=== PATIENT | female | born 1945 | race Caucasian/White ===

== ENCOUNTER 2018-04-08 09:47 | Observation (INO) ==
[2018-04-08 11:18] LABS: Baso # (Auto) 0.1 th/mm3 (0.0-0.2); Baso % (Auto) 0.6 % (0.0-2.0); Eos # (Auto) 0.2 th/mm3 (0.0-0.4); Hematocrit 41.5 % (35.0-46.0); Hemoglobin 13.8 gm/dL (11.6-15.3); Lymph # (Auto) 2.1 th/mm3 (1.0-4.8); Lymph % (Auto) 17.5 % (9.0-44.0); Mean Corpuscular HGB Conc 33.3 % (32.0-36.0); Mean Corpuscular Hemoglobin 28.3 pg (27.0-34.0); Mean Platelet Volume 8.8 fL (7.0-11.0); Mono # (Auto) 0.7 th/mm3 (0.0-0.9); Mono % (Auto) 5.5 % (0.0-8.0); Neut # (Auto) 8.9 th/mm3 (1.8-7.7); Neut % (Auto) 74.4 % (16.0-70.0); Platelet Count 235 th/mm3 (150-450); Red Blood Count 4.89 mil/mm3 (4.00-5.30); Red Cell Distribution Width 13.8 % (11.6-17.2)
[2018-04-08] MEDS ORDERED: Pantoprazole Inj 80 MG in Sodium Chlor 0.9% Inj 35 ML IV.SIG ONE (11:20)
--- NOTE | 2018-04-08 11:20 | ED ---
HPI General Chief complaint: GI Bleed Stated complaint: Rectal bleeding x 1 day Time Seen by Provider: 04/08/18 10:54 Source: patient and family Mode of arrival: ambulatory Limitations: no limitations History of Present Illness HPI narrative: 72 y/o female states she has been having bright red rectal bleeding over the past couple of days. Her family helps supplement history as she states she cannot remember a lot after her stroke. They state that she had a colonoscopy routinely a year ago that was okay. They state that she recently got switched from Coumadin to Eliquis this week were advised to watch out for bleeding. When they called the doctor they advised him to come here. Quality is bright red. Severity is rectal. Patient denies any other concurrent complaints. Onset (ago): day(s) Radiation: non-radiation Exacerbating factors: none Associated symptoms: Reports denies other symptoms Related Data Allergies Allergy/AdvReac Type Severity Reaction Status Date / Time carboplatin Allergy Severe Anaphylaxis Verified 04/08/18 12:01 Review of Systems ROS: all other systems reviewed are negative [facility] Medical History Medical History Diabetes (Acute) History of CVA (cerebrovascular accident) (Acute) Hx of hysterectomy (Acute) Hypercholesteremia (Acute) Hypertension (Acute) Surgical History Surgical History Hx of carpal tunnel repair (Acute) Hx of right mastectomy (Acute) Hx of total hip arthroplasty (Acute) Social History Social History Substance History: No History of Abuse Smoking Status: Former smoker How Often Do You Have a Drink Containing Alcohol: Never Recent Travel in [facility] within the Last 8 Weeks: No Recent Out of Country Travel within the Last 8 Weeks: No Exam Narrative Exam Narrative: GENERAL: 72 y/o female in no apparent distress, pale SKIN: Focused skin assessment warm/dry. HEAD: Atraumatic. Normocephalic. EYES: Pupils equal and round. No scleral icterus. No injection or drainage. ENT: No nasal bleeding or discharge. Mucous membranes pink and moist. NECK: Trachea midline. No JVD. CARDIOVASCULAR: Regular rate and rhythm. RESPIRATORY: No accessory muscle use. Clear to auscultation. Breath sounds equal bilaterally. GASTROINTESTINAL: Abdomen soft, non-tender, nondistended. MUSCULOSKELETAL: No obvious deformities. No clubbing. No cyanosis. NEUROLOGICAL: Awake and alert. moves all extremities. Normal speech. RECTAL EXAM: Performed with lead pressman and after permission. No external hemorrhoid or fissure, stool is brown, with blood PSYCHIATRIC: Appropriate mood and affect; insight and judgment normal. Procedures Hemaprompt Stool Procedural Steps Taken: specimen placed in appropriate test area, developer placed on specimen and control areas and controls appropriately positive and negative Hemaprompt Stool Result: positive Course Reevaluation(s) Reevaluation #1: Lab work stable. Will discuss with GI Reevaluation #2: Patient agrees to observation, given active bleeding and on Eliquis Consultations Consultation #1: dr hughes agrees to observation and will follow Consultation #2: dr farooq agrees to admit Initial Documented Vital Signs Temperature 98.6 F 04/08/18 10:03 Pulse Rate 103 H 04/08/18 10:03 Respiratory Rate 18 04/08/18 10:03 Blood Pressure 168/76 H 04/08/18 10:03 Pulse Oximetry 96 04/08/18 10:03 Last Documented Vital Signs Temperature 98.6 F 04/08/18 10:03 Pulse Rate 68 04/08/18 12:23 Respiratory Rate 20 04/08/18 12:23 Blood Pressure 115/67 04/08/18 12:23 Pulse Oximetry 100 04/08/18 12:23 Medical Decision Making MDM Narrative Medical decision making narrative: We will check blood work and place on Protonix and reevaluate Medical Screen Exam Complete: Yes Emergency Medical Condition: Yes Differential Diagnosis Differential Diagnosis: Hemorrhoid, anemia, diverticulosis Lab Data Lab results reviewed: Yes I reviewed the patient's lab results. Result diagrams: 04/08/18 11:09 04/08/18 11:09 Lab Results 04/08/18 04/08/18 04/08/18 Range/Units 11:09 11:09 11:09 CBC w Diff Auto diff final WBC 12.0 H (4.0-11.0) th/mm3 RBC 4.89 (4.00-5.30) mil/mm3 Hgb 13.8 (11.6-15.3) gm/dL Hct 41.5 (35.0-46.0) % MCV 85.0 (80.0-100.0) fL MCH 28.3 (27.0-34.0) pg MCHC 33.3 (32.0-36.0) % RDW 13.8 (11.6-17.2) % Plt Count 235 (150-450) th/mm3 MPV 8.8 (7.0-11.0) fL Neut % (Auto) 74.4 H (16.0-70.0) % Lymph % (Auto) 17.5 (9.0-44.0) % Wheeler % (Auto) 5.5 (0.0-8.0) % Eos % (Auto) 2.0 (0.0-4.0) % Baso % (Auto) 0.6 (0.0-2.0) % Neut # (Auto) 8.9 H (1.8-7.7) th/mm3 Lymph # (Auto) 2.1 (1.0-4.8) th/mm3 Wheeler # (Auto) 0.7 (0.0-0.9) th/mm3 Eos # (Auto) 0.2 (0.0-0.4) th/mm3 Baso # (Auto) 0.1 (0.0-0.2) th/mm3 WBC Differential . Differential Comment . PT 12.3 H (9.8-11.6) sec INR 1.2 Ratio APTT 26.1 (23.4-31.7) sec Sodium 138 (136-145) meq/L Potassium 3.1 L (3.5-5.1) meq/L Chloride 100 (98-107) meq/L Carbon Dioxide 30.8 (21.0-32.0) meq/L Anion Gap 7 (5-15) meq/L BUN 19 H (7-18) mg/dL Creatinine 1.10 H (0.50-1.00) mg/dL Estimated GFR 49 L (>89) mL/min Random Glucose 204 H (74-106) mg/dL Calcium 8.6 (8.5-10.1) mg/dL Magnesium 1.6 (1.5-2.5) mg/dL Total Bilirubin 0.3 (0.2-1.0) mg/dL AST 27 (15-37) U/L ALT 36 (10-53) U/L Alkaline Phosphatase 89 (45-117) U/L Total Protein 7.5 (6.4-8.2) g/dL Albumin 3.3 L (3.4-5.0) g/dL Discharge Plan Discharge Disposition Patient Disposition: ED Admit(ED Internal Use Only) Discharge Order Discharge Orders: ED Use Only Admit Order (Routine); Ordered 04/08/18 Ordered By: Dedra Silverman Discharge Details Diagnosis: Rectal bleeding Physicians Team ED Provider: Dedra Silverman Primary Care Provider: Crissy Florez Rxs /Orders / Referrals /Forms Referrals: Crissy Florez MD [Primary Care Provider] - See Instructions Status ED Status: Admitted Observation Patient
[2018-04-08 11:29] LABS: Chloride 100 meq/L (98-107); Potassium 3.1 meq/L (3.5-5.1); Sodium 138 meq/L (136-145)
[2018-04-08 11:32] LABS: Calcium 8.6 mg/dL (8.5-10.1)
[2018-04-08 11:33] LABS: Albumin 3.3 g/dL (3.4-5.0); Anion Gap 7 meq/L (5-15); Blood Urea Nitrogen 19 mg/dL (7-18); Carbon Dioxide 30.8 meq/L (21.0-32.0); Glucose,Random 204 mg/dL (74-106); Magnesium 1.6 mg/dL (1.5-2.5)
[2018-04-08 11:36] LABS: Alanine Aminotransferase 36 U/L (10-53); Aspartate Aminotransferase 27 U/L (15-37); Glomerular Filtration Rate 49 mL/min (>89)
[2018-04-08 11:37] LABS: Activated Partial Thrombo Time 26.1 sec (23.4-31.7); INR 1.2 Ratio; Prothrombin Time 12.3 sec (9.8-11.6); Total Protein 7.5 g/dL (6.4-8.2)
[2018-04-08 11:39] LABS: Alkaline Phosphatase 89 U/L (45-117)
[2018-04-08] MEDS ORDERED: Acetaminophen 325 MG Tablet PO PRN (12:23)
[2018-04-08] MEDS: Sod Chloride 0.9% Inj 1,000 ML IV.CONT SCH ×2 (12:48→23:35)
[2018-04-08] MEDS ORDERED: Dextrose 50% in Water 50 ML Vial IV.PUSH PRN (18:30)
--- NOTE | 2018-04-08 18:31 | MB ---
cc: Smitha Foster MD DATE: 04/08/2018 REFERRING PHYSICIAN: Crissy Florez MD REASON FOR CONSULTATION: GI bleed. HISTORY OF PRESENT ILLNESS: Ms. Duke is a very pleasant 72-year-old with multiple medical problems who came to the emergency room with a complaint of GI bleed. The patient stated she had some dark red blood 2 days ago, followed by some brown stool. The patient called her primary care doctor and she was advised to come to the hospital for further investigation and treatment. The patient was recently switched from Coumadin to Eliquis and advised to watch for bleeding. She denies any nausea, vomiting, constipation, diarrhea, melena or hematemesis. She did have a colonoscopy many years ago. According to her, everything was normal. PAST MEDICAL HISTORY: She has a history of CVA, diabetes, high cholesterol, breast cancer. PAST SURGICAL HISTORY: Hysterectomy, carpal tunnel repair, right mastectomy and total hip arthroplasty. ALLERGIES: CARBOPLATIN. MEDICATIONS: In the hospital, she is on Zofran and IV fluids. At home, she is on tamoxifen, spironolactone, metoprolol, metformin, hydralazine, DuoNeb, Paxil, atorvastatin, insulin and recently started on Eliquis. REVIEW OF SYSTEMS: CONSTITUTIONAL: She denies any fever, chills, weight loss or weight gain. ENT: No alteration in baseline hearing or visual acuity. PULMONARY: Denies any chest pain or shortness of breath. GASTROINTESTINAL: As above. GENITOURINARY: Denies dysuria or hematuria. HEMATOLOGIC: Denies any history of anemia or bleeding disorder. SKIN: No alteration in baseline skin lesion. NEUROLOGIC: No history of TIA or CVA kind of symptoms. PHYSICAL EXAMINATION: GENERAL: She is sitting comfortably in bed, in no acute distress. VITAL SIGNS: Her heart rate is 68, blood pressure 142/61, saturation 100. HEENT: PERRLA. NECK: No JVD. No lymphadenopathy. CHEST: Clear to auscultation on palpation. CARDIOVASCULAR: S1, S2. No murmur. ABDOMEN: Soft, obese. Bowel sounds are present. CENTRAL NERVOUS SYSTEM: Awake, alert, oriented x 3. No focal signs identified. LABORATORY DATA: Her white count is 12, hemoglobin 13.8, platelets 235. PT/INR is normal. Her chemistries essentially suggest BUN 19, creatinine 1.1, glucose 204. Liver enzymes are normal. No imaging was done since her admission. IMPRESSION: Ms. Duke is a very pleasant 72-year-old lady admitted to the hospital with a gastrointestinal bleed, hemodynamically stable at this time. No indication of active bleed. RECOMMENDATIONS: Monitor H and H closely. Clear liquid diet. EGD and colonoscopy in the morning. Transfuse p.r.n. to keep hemoglobin more than 10. If active bleeding, consider bleeding scan stat. Please inform GI if active bleeding. I would like to thank you for referring her to our office for consultation. Further recommendations will depend on the patient's clinical status and the above results. MD GUY Bradsahw/viraj , 06:04 PM , 06:13 PM ILEANA
--- NOTE | 2018-04-08 18:36 | P.HPIM ---
History of Present Illness Primary Care Physician: Crissy Florez MD Chief Complaint: Bright red blood per rectum History of Present Illness: 72-year-old female with known history of hypertension, hyperlipidemia, history of breast cancer, history of CVA, dementia , diabetes who presented to the hospital the request of her primary medical doctor. The patient does have history of memory deficits after her stroke. Patient is on full anticoagulation for the stroke. Patient was converted from Coumadin to Eliquis this week and they were notified that if they need to monitor for any bleeding. They did notice bleeding per rectum 2 days ago. Patient and the family were told by the primary care doctor to come to the hospital for evaluation. Patient did have workup done in emergency department with hemoglobin 13.8. It was recommended by the ER physician that the patient be admitted to hospital for further evaluation and management. GI consult was requested. Patient denies any shortness of breath, lightheadedness, dizziness. Review of Systems Review of Systems: all other systems reviewed are negative Gastrointestinal: Reports other (Bright red blood per rectum) [facility] Medical History Medical History Diabetes (Acute) History of CVA (cerebrovascular accident) (Acute) History of breast cancer (Acute) Hx of hysterectomy (Acute) Hypercholesteremia (Acute) Hypertension (Acute) Surgical History Surgical History Hx of carpal tunnel repair (Acute) Hx of right mastectomy (Acute) Hx of total hip arthroplasty (Acute) Family History Family History Other No pertinent family history Social History Social History Substance History: No History of Abuse Second Hand Smoke Exposure: Yes Smoking Status: Former smoker Number of Pack-Years (if former smoker): 20 Smoking End Date: Patient states that she quit smoking 5 years ago How Often Do You Have a Drink Containing Alcohol: Never Recent Travel in [place] within the Last 8 Weeks: No Recent Out of Country Travel within the Last 8 Weeks: No Immunization History Tetanus Immunization: >5 Years Medications and Allergies Allergies Allergy/AdvReac Type Severity Reaction Status Date / Time carboplatin Allergy Severe Anaphylaxis Verified 04/08/18 12:01 Home Medications Medication Instructions Recorded Confirmed Type atorvastatin 80 mg PO QPM 04/08/18 04/08/18 History donepezil 10 mg PO DAILY 04/08/18 04/08/18 History hydralazine 25 mg PO BID 04/08/18 04/08/18 History insulin glargine [Lantus U-100 04/08/18 History Insulin] metformin 1,000 mg PO BID 04/08/18 04/08/18 History metoprolol tartrate 25 mg PO BID 04/08/18 04/08/18 History spironolactone 25 mg PO DAILY 04/08/18 04/08/18 History tamoxifen 20 mg PO DAILY 04/08/18 04/08/18 History Active Medications: Active Medications Acetaminophen (Tylenol) 650 mg PO Q4H PRN PRN Reason: Temp > 100.4 Dextrose (D50w Vial) 50 ml IV.PUSH UNSCH PRN PRN Reason: PER HYPOGLYCEMIA PROTOCOL Glucagon (Glucagon Inj) 1 mg OTHER PRN PRN PRN Reason: for Hypoglycemia Protocol Sodium Chloride (Ns Inj) 1,000 mls @ 100 mls/hr IV.CONT .Q10H JUAN Last Infusion: 04/08/18 14:31 Dose: 100 mls/hr Insulin Aspart (Novolog Insulin Correctional Sugar Inj) 0 unit SQ ACHS JUAN; Protocol Ondansetron HCl (Zofran Inj) 4 mg IV.PUSH Q6H PRN PRN Reason: NAUSEA OR VOMITING Polyethylene Glycol/Electrolytes (Colyte Liq) 4,000 ml PO ONCE ONE Stop: 04/08/18 19:01 Sodium Chloride (Ns Flush) 2 ml IV.FLUSH PRN PRN PRN Reason: FLUSH AFTER USING IV ACCESS Sodium Chloride (Ns Flush) 2 ml IV.FLUSH BID JUAN Physical Exam Vital signs: Vital Signs 04/08/18 10:03 04/08/18 11:00 04/08/18 12:23 Temperature 98.6 F Pulse Rate 103 H 82 68 Respiratory Rate 18 20 20 Blood Pressure 168/76 H 170/82 H 115/67 Pulse Oximetry 96 99 100 04/08/18 13:55 Temperature Pulse Rate 78 Respiratory Rate 20 Blood Pressure 142/61 H Pulse Oximetry 100 Intake & Output 04/07/18 04/08/18 04/08/18 18:59 06:59 18:59 Intake Total 200 / 200 Balance 200 / 200 Weight 57.1 kg Intake: IV 200 / 200 NS Inj 1,000 ML @ 100 mls/hr IV 165 / 165 .CONT .Q10H JUAN Rx#:[id number] Protonix Inj 80 MG In NS Inj 35 35 / 35 ML @ 420 mls/hr IV.SIG BOLUS ONE Rx#:[id number] Other: Date of Last Bowel Movement 04/07/18 Results Labs CBC & Chem 7: 04/08/18 11:09 04/08/18 11:09 Caprini VTE Risk Assessment Caprini VTE Risk Assessment: Moderate/High Risk (score >= 2) Caprini Risk Assessment Model: Point Value = 1 Point Value = 2 Point Value = 3 Point Value = 5 Age 41-60 Minor surgery BMI > 25 kg/m2 Swollen legs Varicose veins or History of unexplained or recurrent spontaneous Oral contraceptives or hormone replacement Sepsis (< 1 month) Serious lung disease, including pneumonia (< 1 month) Abnormal pulmonary function Acute myocardial infarction Congestive heart failure (< 1 month) History of inflammatory bowel disease Medical patient at bed rest Age 61-74 Arthroscopic surgery Major open surgery (> 45 min) Laparoscopic surgery (> 45 min) Malignancy Confined to bed (> 72 hours) Immobilizing plaster cast Central venous access Age >= 75 History of VTE Family history of VTE Factor V Leiden Prothrombin [id number] Lupus anticoagulant Anticardiolipin antibodies Elevated serum homocysteine Heparin-induced thrombocytopenia Other congenital or acquired thrombophilia Stroke (< 1 month) Elective arthroplasty Hip, pelvis, or leg fracture Acute spinal cord injury (< 1 month) Prophylaxis Regimen: Total Risk Factor Score Risk Level Prophylaxis Regimen 0-1 Low Early ambulation 2 Moderate Order ONE of the following: *Sequential Compression Device (SCD) *Heparin 5000 units SQ BID 3-4 Higher Order ONE of the following medications: *Heparin 5000 units SQ TID *Enoxaparin/Lovenox 40 mg SQ daily (WT < 150 kg, CrCl > 30 mL/min) *Enoxaparin/Lovenox 30 mg SQ daily (WT < 150 kg, CrCl > 10-29 mL/min) *Enoxaparin/Lovenox 30 mg SQ BID (WT < 150 kg, CrCl > 30 mL/min) AND/OR *Sequential Compression Device (SCD) 5 or more Highest Order ONE of the following medications: *Heparin 5000 units SQ TID (Preferred with Epidurals) *Enoxaparin/Lovenox 40 mg SQ daily (WT < 150 kg, CrCl > 30 mL/min) *Enoxaparin/Lovenox 30 mg SQ daily (WT < 150 kg, CrCl > 10-29 mL/min) *Enoxaparin/Lovenox 30 mg SQ BID (WT < 150 kg, CrCl > 30 mL/min) AND *Sequential Compression Device (SCD) Assessment and Plan Plan Bright red blood per rectum Patient with increased risk of bleeding due to anticoagulation with Eliquis Continue monitor hemoglobin transfuse a hemoglobin below 8.0 Mechanical Lead consulted who plans to take the patient for upper and lower endoscopies tomorrow Start proton pump inhibitor Hypertension, hyperlipidemia Continue home medications History of CVA Resume anticoagulation once cleared by radio communication coordinator Diabetes Accu-Cheks with sliding scale insulin DVT prevention Sequential compression devices Discussed Condition With: Patient, nursing staff, radio communication coordinator, Dr. Savage H&P: Quality VTE Deep Vein Thrombosis/Pulmonary Embolism Present on Admission: No
[2018-04-08] MEDS ORDERED: PEG 3350/E-Lyte Soln 4000 ML Bottle PO ONE (19:00)
[2018-04-08] MEDS: Insulin NovoLOG Aspart Correctional Sugar Inj SQ SCH (21:06)
[2018-04-08] MEDS: Metoprolol Tartrate 25 MG Tablet PO SCH (21:07)
[2018-04-08] MEDS: hydrALAZINE 25 MG Tablet PO SCH (21:08)
[2018-04-09 06:48] LABS: Chloride 106 meq/L (98-107); Potassium 3.3 meq/L (3.5-5.1); Sodium 141 meq/L (136-145)
[2018-04-09 06:55] LABS: Albumin 2.8 g/dL (3.4-5.0); Anion Gap 6 meq/L (5-15)
[2018-04-09 06:57] LABS: Baso # (Auto) 0.2 th/mm3 (0.0-0.2); Baso % (Auto) 1.3 % (0.0-2.0); Eos # (Auto) 0.1 th/mm3 (0.0-0.4); Eos % (Auto) 0.6 % (0.0-4.0); Hematocrit 38.5 % (35.0-46.0); Hemoglobin 12.8 gm/dL (11.6-15.3); Lymph % (Auto) 16.5 % (9.0-44.0); Mean Corpuscular HGB Conc 33.3 % (32.0-36.0); Mean Corpuscular Hemoglobin 28.2 pg (27.0-34.0); Mean Corpuscular Volume 84.6 fL (80.0-100.0); Mean Platelet Volume 9.8 fL (7.0-11.0); Mono # (Auto) 0.8 th/mm3 (0.0-0.9); Mono % (Auto) 6.3 % (0.0-8.0); Neut # (Auto) 9.2 th/mm3 (1.8-7.7); Neut % (Auto) 75.3 % (16.0-70.0); Platelet Count 227 th/mm3 (150-450); Red Blood Count 4.55 mil/mm3 (4.00-5.30); Red Cell Distribution Width 13.7 % (11.6-17.2); White Blood Count 12.3 th/mm3 (4.0-11.0)
[2018-04-09] MEDS ORDERED: Lidocaine PF 1% Inj 5 ML Syringe INFILTRATN ONE (07:08)
[2018-04-09 07:10] LABS: Alanine Aminotransferase 24 U/L (10-53); Alkaline Phosphatase 71 U/L (45-117); Aspartate Aminotransferase 25 U/L (15-37); Blood Urea Nitrogen 11 mg/dL (7-18); Glomerular Filtration Rate 69 mL/min (>89); Glucose,Random 63 mg/dL (74-106); Total Protein 6.3 g/dL (6.4-8.2)
--- NOTE | 2018-04-09 07:29 | GIPROC ---
[address], [address] COLONOSCOPY PROCEDURE REPORT EXAM DATE: 04/09/2018 PATIENT NAME: Anabell Duke MR #: [id number] BIRTHDATE: 1945 ENDOSCOPIST: Smitha Foster MD ORDER #: [id number] CHIEF OPERATING OFFICER: Colin Correia Howard, Jennifer, and Fe Stafford STATUS: inpatient INDICATIONS: The patient is a 72 yr old female here for a colonoscopy due to gi bleeding PROCEDURE PERFORMED: Colonoscopy, incomplete MEDICATIONS: None and Per Anesthesia. PREP QUALITY: poor PREP TYPE:GoLytely PREP TYPE:Other: PREP TYPE:Other: as per floor anderson had 40 % of prep, anderson stated she was not given any prep ESTIMATED BLOOD LOSS: None CONSENT: The patient understands the risks and benefits of the procedure and understands that these risks include, but are not limited to: sedation, allergic reaction, infection, perforation and/or bleeding. Alternative means of evaluation and treatment include, among others: physical exam, x-rays, and/or surgical intervention. The patient elects to proceed with this endoscopic procedure. medical equipment was checked for proper function. Hand hygiene and appropriate measures for infection prevention was taken. After the risks, benefits and alternatives of the procedure were thoroughly explained, Informed consent was verified, confirmed and timeout was successfully executed by the treatment team. A digital exam revealed external hemorrhoids The Pentax EC-[id number] endoscope was introduced through the anus and advanced to the descending colon. The instrument was then slowly withdrawn as the colon was fully examined. COLON FINDINGS: Poor prep. Retroflexed views revealed internal hemorrhoids and Retroflexed views revealed small internal hemorrhoids The scope was then completely withdrawn from the patient and the procedure terminated. picture could not be taken secondary to IT problems ADVERSE EVENTS: There were no complications. IMPRESSIONS: 1. Poor prep 2. Retroflexed views revealed internal hemorrhoids 3. Retroflexed views revealed small internal hemorrhoids 4. Revealed external hemorrhoids RECOMMENDATIONS: Clear liquid diet restart prep today colonoscopy in am , can be done op too RECALL: Return 1 day Colonoscopy Smitha Foster MD eSigned: Smitha Foster MD 04/09/2018 7:28 AM cc:
--- NOTE | 2018-04-09 07:31 | GIPROC ---
[address], [address] EGD PROCEDURE REPORT EXAM DATE: 04/09/2018 PATIENT NAME: Anabell Duke MR #: [id number] BIRTHDATE: 1945 ATTENDING: Smitha Foster MD ORDER #: [id number] TRAVEL AGENT: Colin Correia Pena, Gabriela, and Manuela Gonzales STATUS: inpatient INDICATIONS: The patient is a 72 yr old female here for an EGD due to bleeding PROCEDURE PERFORMED: EGD w/ biopsy MEDICATIONS: None and Per Anesthesia. TOPICAL ANESTHETIC: none CONSENT: The patient understands the risks and benefits of the procedure and understands that these risks include, but are not limited to: sedation, allergic reaction, infection, perforation and/or bleeding. Alternative means of evaluation and treatment include, among others: physical exam, x-rays, and/or surgical intervention. The patient elects to proceed with this endoscopic procedure. medical equipment was checked for proper function. Hand hygiene and appropriate measures for infection prevention was taken. After the risks, benefits and alternatives of the procedure were thoroughly explained, Informed consent was verified, confirmed and timeout was successfully executed by the treatment team. The patient was anesthetized with topical anesthesia and the [id number] (Pedi C) endoscope was introduced through the mouth and advanced to the second portion of the duodenum. Retroflexed views revealed a hiatal hernia The gastroscope was then slowly withdrawn and removed. Duodenum normal-biopsy gastritis antrum-biopsy esophagitis distal esophagus-biopsy. pictures could not be taken due to IT problems ADVERSE EVENTS: There were no complications. IMPRESSIONS: 1. Duodenum normal-biopsy gastritis antrum-biopsy esophagitis distal esophagus-biopsy 2. Retroflexed views revealed a hiatal hernia RECOMMENDATIONS: 1. Await biopsy results. Biopsy results will not be ready for 7-10 days. If you don't hear from us in two weeks, call our office for biopsy results. 2. Anti-reflux regimen 3. Continue PPI PATIENT CONDITION: stable DISPOSITION: Inpatient REPEAT EXAM: Return 3 years EGD Smitha Fsoter MD eSigned: Smitha Foster MD 04/09/2018 7:31 AM cc:
[2018-04-09] MEDS ORDERED: PEG 3350/E-Lyte Soln 4000 ML Bottle PO ONE (08:00)
[2018-04-09 08:14] VITALS: O2SAT 97
[2018-04-09] MEDS: Insulin NovoLOG Aspart Correctional Sugar Inj SQ SCH ×2 (09:16→11:01)
[2018-04-09] MEDS: Metoprolol Tartrate 25 MG Tablet PO SCH (09:17)
[2018-04-09] MEDS: hydrALAZINE 25 MG Tablet PO SCH (09:17)
--- NOTE | 2018-04-09 10:43 | P.PNIM ---
Subjective Interval history: 72-year-old female who is seen examined today for follow-up on bright red blood per rectum. Patient denies any recurrent bleeding per rectum. Patient did undergo EGD and flexible sigmoidoscopy this morning. Patient is doing well. Denies any new complaints. Vital signs are stable. Patient remains afebrile. Physical Exam Vital signs: Vital Signs 04/08/18 11:00 04/08/18 12:23 04/08/18 13:55 Temperature Pulse Rate 82 68 78 Respiratory Rate 20 20 20 Blood Pressure 170/82 H 115/67 142/61 H Pulse Oximetry 99 100 100 04/08/18 16:00 04/08/18 20:00 04/09/18 00:00 Temperature 96.6 F L 97.7 F 96.6 F L Pulse Rate 83 81 65 Respiratory Rate 20 20 20 Blood Pressure 135/68 159/77 H 100/55 L Pulse Oximetry 96 94 L 93 L 04/09/18 06:47 04/09/18 07:35 04/09/18 07:38 Temperature 98.7 F 98.2 F Pulse Rate 72 72 71 Respiratory Rate 18 16 16 Blood Pressure 175/69 H 117/44 L 109/45 L Pulse Oximetry 98 97 98 04/09/18 07:43 04/09/18 08:10 Temperature Pulse Rate 69 66 Respiratory Rate 16 16 Blood Pressure 112/59 L 126/64 Pulse Oximetry 96 97 Intake & Output 04/08/18 04/09/18 04/09/18 18:59 06:59 18:59 Intake Total 200 / 200 1195 / 1195 1200 / 1200 Balance 200 / 200 1195 / 1195 1200 / 1200 Weight 57.1 kg 57.2 kg Intake: IV 200 / 200 835 / 835 1000 / 1000 NS Inj 1,000 ML @ 100 mls/hr IV 165 / 165 835 / 835 1000 / 1000 .CONT .Q10H JUAN Rx#:[id number] Protonix Inj 80 MG In NS Inj 35 35 / 35 ML @ 420 mls/hr IV.SIG BOLUS ONE Rx#:[id number] Oral 360 / 360 Anesthesia Amount 200 / 200 Other: # Voids 4 Date of Last Bowel Movement 04/07/18 04/06/18 Narrative: GENERAL: Well-developed, well-nourished, in no acute distress. alert HEENT: Head is normocephalic without any lesions or masses noted. Facial features are symmetric. Eyes: Extraocular muscles are intact. Conjunctivae were clear. NECK: Supple without any masses. Trachea midline no deviation. No JVD, CARDIAC: Regular rhythm, regular rate. S1/S2 are heard. No murmurs gallops or rubs. LUNGS: Clear to auscultation bilaterally. No wheeze, rhonchi or rales. No use of accessory muscles on inspiration or expiration. ABDOMEN: Soft, nontender. Nondistended. Bowel sounds heard in all 4 quadrants. No organomegaly or masses. Negative rebound, negative guarding EXTREMITIES: No edema, pulses are equal bilaterally. No cyanosis or clubbing NEUROLOGY: Mood and affect appear appropriate. Cranial nerves II through XII grossly intact. Moving all extremities, speech is clear Results Labs CBC & Chem 7: 04/09/18 05:42 04/09/18 05:42 Assessment and Plan Plan Bright red blood per rectum, no further recurrence Patient with increased risk of bleeding due to anticoagulation with Eliquis Continue monitor hemoglobin transfuse a hemoglobin below 8.0. No significant drop in hemoglobin Tank Maker Wood consulted who took the patient for endoscopy this morning. EGD was performed which did not indicate any acute abnormality. Patient did not undergo prep for complete colonoscopy. However, flexible sigmoidoscopy was performed which did not indicate any active signs of bleeding. Tank Maker Wood says that since patient has no active bleeding, hemoglobin stable she may be discharged home with outpatient colonoscopy. Discussed with patient her treatment options of remaining in the hospital to have colonoscopy done tomorrow afternoon or go home with outpatient colonoscopy. Patient does not want to remain in the hospital this time. She states that she would want to undergo outpatient colonoscopy. 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 Foster, nursing staff, Dr. Savage Discharge Planning: Discharge home in stable condition Activity: Ad dl. Diet: Diabetic diet Medication per medication reconciliation Follow-up with primary medical doctor in 1 week Progress Note: Quality VTE Deep Vein Thrombosis/Pulmonary Embolism Present on Admission: No
[2018-04-09] MEDS: Sod Chloride 0.9% Inj 1,000 ML IV.CONT SCH (11:01)
[2018-04-09 12:09] VITALS: BP 155/94; PULSE 67; RESP 20; TEMP 99.3
--- NOTE | 2018-04-09 20:21 | ECG ---
Date Performed: 04/08/2018 Time Performed: 23:01:03 PTAGE: 72 years EKG: Sinus rhythm POSSIBLE INFERIOR MYOCARDIAL INFARCTION BORDERLINE ECG NO PREVIOUS TRACING DOCTOR: Esteban Paulino Interpretating Date/Time 04/09/2018 20:19:22
== END 2018-04-09 17:11 | disposition home or self-care (01) ==
LOC: PHED 09:47 → PHEDA 09:47 → PH3 14:32
PROVIDERS: ADMIT Hospitalist; ATTEND Hospitalist
PROC: COLONOS (2018-04-09 07:10)
PROC: PANENDO (2018-04-09 07:10)
CPT/HCPCS: 80053; 82948; 82962; 83735; 85025; 85610; 85730; 86850; 86900; 86901; 88305; 88312; 93005; 96361; 96374; 99285; C9113; G0378; J2704; J7030